=== PATIENT | female | born 1975 | race Caucasian/White ===

== ENCOUNTER 2017-01-18 19:21 | Inpatient (IN) ==
[2017-01-18 19:46] LABS: MANUAL DIFF NEEDED? NO
[2017-01-18 19:50] LABS: BASO% 0.1 % (0.0-0.8); EOS# 0.08 X1000 (0.0-0.7); EOS% 0.6 % (0.0-10.0); HEMOGLOBIN 13.3 g/dL (12.0-16.0); IMM GRAN# 0.04 X1000 (0.0-0.04); IMM GRAN% 0.3 % (0.0-0.5); LYMPH# 1.44 X1000 (1.2-3.4); LYMPH% 10.3 % (20.5-51.1); MCHC 33.3 g/dL (33-37); MCV 90.1 FL (81-99); MONO# 1.25 X1000 (0.11-0.59); MONO% 8.9 % (1.7-9.3); MPV 9.6 FL (7.4-10.4); NEUT% 79.8 % (42.2-75.2); PLT 253 X1000 (130-400); RBC 4.44 XMIL (4.2-5.4)
[2017-01-18] MEDS ORDERED: DILAUDID IV ONE (20:08)
[2017-01-18] MEDS ORDERED: ZOFRAN IV ONE (20:09)
[2017-01-18] MEDS ORDERED: VANCOMYCIN 1 GM/NS 1 GM/250 ML IVPB IV ONE (20:09)
--- NOTE | 2017-01-18 20:26 | PROVIDER DOCUMENTATION ---
HPI-Rash/Wound/ReCheck - General Chief Complaint: Abscess Stated Complaint: ABCESS/INFECTION Time Seen by Provider: 01/18/17 20:04 Allergies/Adverse Reactions: Allergies Allergy/AdvReac Type Severity Reaction Status Date / Time Penicillins Allergy Severe ANAPHYLAXIS Verified 01/16/17 18:17 ketorolac tromethamine * Allergy ITCHING Verified 01/16/17 18:17 [From Toradol] latex Allergy RASH Verified 01/16/17 18:17 tramadol Allergy SWELLING Verified 01/16/17 18:17 Home Medications: Home Medication List Medication Instructions Recorded Confirmed Last Taken Type Ibuprofen [Motrin] 800 mg PO Q8H PRN PRN #20 tablet 05/09/16 01/18/17 01/18/17 17:00 Rx Metformin [Glucophage] 500 mg PO TID 05/09/16 01/18/17 01/18/17 17:00 History - History of Present Illness-Dermatology Nature of Presenting Problem: 41 yof presented with abscess to left inner thigh. Pt has a large area of redness and erythema. Pt was seen at [facility] for abscess and now a new abscess has developed with an increase in cellulitis. Severity: reports: mild Onset/Duration: reports: 2 days ago Timing: reports: still present Review of Systems - Adult - REVIEW OF SYSTEMS - ADULT Constitutional: reports: see HPI Eyes: reports: no symptoms reported Ears, Nose, Mouth & Throat: reports: no symptoms reported Cardiovascular: reports: no symptoms reported Respiratory: reports: no symptoms reported Gastrointestinal: reports: no symptoms reported Genitourinary: reports: no symptoms reported Musculoskeletal: reports: see HPI Integumentary: reports: see HPI, skin sores/ulcer Neurological: reports: no symptoms reported All Other Systems: Reviewed and Negative Past History - Adult - PAST MEDICAL HISTORY-ADULT Review of Records: reports: Old Records Reviewed, Nursing Assessment Review, Medications Reviewed, Social history reviewed & non-contributory. Major Childhood Illnesses: reports: denies history Cardiovascular: reports: HTN, hyperlipidemia Respiratory: reports: denies history Gastrointestinal: reports: denies history Obstetrical/Gynecological: reports: denies history Genitourinary: reports: denies history Musculoskeletal: reports: denies history Neurological: reports: denies history Endocrine/Immune: reports: Diabetes Other Conditions: reports: denies history - PRIOR SURGERIES/PROCEDURES Surgical/Procedure History: reports: none - IMMUNIZATION STATUS Childhood Immunizations: See Nurse Assessment Flu Vaccine: See Nurse Assessment - FAMILY HISTORY Family History: reviewed, not pertinent Physical Exam-General - PHYSICAL EXAM-ADULT Initial Vital Signs Reviewed: Yes - CONSTITUTIONAL General Appearance: appears well, alert, no apparent distress - EYES Eyes: PERRL/EOMI, pink conjunctivae - HEAD, EARS, NOSE, MOUTH & THROAT HENMT: normocephalic/atraumatic, moist mucous membranes, normal ENT inspection, TMs normal, pharynx normal - NECK Neck: non-tender, full range of motion, supple, normal inspection - RESPIRATORY Respiratory: chest non-tender, lungs clear, normal breath sounds, no pleuratic chest pain, no respiratory distress, no accessory muscle use - CARDIOVASCULAR Cardiovascular: normal peripheral pulses, regular rate, rhythm, no edema, no gallop, no JVD, no murmur - GASTROINTESTINAL (ABDOMEN) Abdominal Exam: normal bowel sounds, non tender, soft, no organomegaly, no pulsatile mass - LYMPHATIC Lymphatic: no adenopathy - MUSCULOSKELETAL Back Exam: normal inspection, no CVA tenderness, no vertebral tenderness Extremity: normal range of motion, non-tender, normal gait, normal inspection, no pedal edema, no calf tenderness, normal capillary refill - SKIN Integumentary: normal color, normal turgor, warm/dry - NEUROLOGIC Neurologic: grossly normal - PSYCHIATRIC Psych/Mental Status: oriented x 3 Progress - PLAN OF CARE/RESULTS Progress/Plan/Lab Results: Vital Signs - 8 hr 01/18/17 19:26 Temperature 98.6 F Pulse Rate 79 Respiratory Rate 16 Blood Pressure 151/87 O2 Sat by Pulse Oximetry 100 Laboratory Results - last 24 hr 01/18/17 01/18/17 19:28 19:28 WBC 13.99 H RBC 4.44 Hgb 13.3 Hct 40.0 MCV 90.1 MCH 30.0 MCHC 33.3 RDW Std Deviation 14.3 Plt Count 253 MPV 9.6 Immature Gran % (Auto) 0.3 Neut % (Auto) 79.8 H Lymph % (Auto) 10.3 L [place] % (Auto) 8.9 Eos % (Auto) 0.6 Baso % (Auto) 0.1 Immature Gran # (Auto) 0.04 Neut # (Auto) 11.16 H Lymph # (Auto) 1.44 [place] # (Auto) 1.25 H Eos # (Auto) 0.08 Baso # (Auto) 0.02 Sodium 133 L Potassium 3.8 Chloride 95 L Carbon Dioxide 22 L Anion Gap 16 BUN 7 L Creatinine 0.6 Estimated GFR/1.73 m2 > 60 BUN/Creatinine Ratio 12 Glucose 191 H Calculated Osmolality 269 Calcium 8.6 L Total Bilirubin 0.43 AST 16 ALT 17 Alkaline Phosphatase 107 H Total Protein 7.8 Albumin 3.3 L Globulin 4.5 Albumin/Globulin Ratio 0.7 Orders Category Date Time Status Saline Loc NOW Care 01/18/17 20:05 Active BLOOD CULTURE [BLDCUL] Stat Lab 01/18/17 20:40 Received CBC WITH DIFF [HEME] Stat Lab 01/18/17 19:28 Completed CMP [COMPREHENSIVE METABOLIC PANEL] [CHEM] Stat Lab 01/18/17 19:28 Completed Hydromorphone [Dilaudid] Med 01/18/17 20:08 Discontinued 1 mg IV NOW ONE Ondansetron [Zofran] Med 01/18/17 20:09 Discontinued 4 mg IV NOW ONE Vancomycin 1 gm/Ns Med 01/18/17 20:09 Discontinued 1 gm in 250 ml IV NOW Result Diagrams: 01/18/17 19:28 01/18/17 19:28 - CONSULTS/PCP/HOSPITALIST Notification #1 *Consult/PCP/Hospitalist*: [place] Time Discussed: 21:12 Consult Disposition: Will see in ED Departure - Departure Time of Disposition Decision: 21:13 DIAGNOSIS: Cellulitis and abscess of leg Disposition: ADMITTED INPATIENT 09 Certified Medical Emergency: Emergent Condition: Stable Referrals and Follow-Ups: None,PCP [Primary Care Provider] - Attestation - Physician/ MELVIN Attestation Patient care was provided by Advanced Practice Provider:: Yes Advanced Practice Provider:: Vinny Prieto Advanced Practice Provider documentation review:: The Mid-level provider documentation, treatment plan and medical decision making was reviewed by the physician who agrees with all treatment and medical decision making by the MLP.
[2017-01-18 20:27] LABS: AGAP 16; ALBUMIN 3.3 g/dL (3.5-5.0); ALKALINE PHOSPHATASE 107 U/L (32-104); BUN 7 mg/dL (8-22); CALCIUM 8.6 mg/dL (8.8-10.2); CHLORIDE 95 mmol/L (98-107); COSMO 269; GOT 16 U/L (10-30); GPT 17 U/L (10-36); POTASSIUM 3.8 mmol/L (3.5-5.1); SODIUM 133 mmol/L (136-145); TCO2 22 mmol/L (25-35); TOTAL BILIRUBIN 0.43 mg/dL (0.20-1.00); TOTAL PROTEIN 7.8 g/dL (6.3-8.3)
[2017-01-18] MEDS: CLINDAMYCIN 600 MG/NS 600 MG/50 ML IVPB IV SCH (21:45)
--- NOTE | 2017-01-18 23:28 | HISTORY AND PHYSICAL ---
PRIMARY CARE PROVIDER: [facility] on [facility]. No specific doctor. CHIEF COMPLAINT: Left thigh pain. HISTORY OF PRESENT ILLNESS: This is a 41-year-old female, who appears to be's somewhat medically noncompliant who has a stated history of hypertension, hyperlipidemia, diabetes mellitus type 2 and COPD who does not seem to take any oral medications for hypertension. She went to [facility] reportedly this last Tuesday because she felt as if she had an abscess on the back of her left thigh. During the process of numbing the abscess, the patient told the provider to stop. She received oral antibiotics there, then left against medical advice and did not receive further medication. She comes in today with redness to the right upper thigh, which extends all the way to the posterior portion of the thigh as well. There appear to be multiple small abscesses with erythema surrounding it. There was no fluctuance noted on evaluation. The patient will be admitted for IV antibiotics and further evaluation and treatment. PAST MEDICAL HISTORY: 1. Hypertension. 2. Hyperlipidemia. 3. Diabetes mellitus. 4. Questionable COPD. PREVIOUS SURGICAL HISTORY: Denies. FAMILY HISTORY: Her mother and aunts on her maternal side of the family all have diabetes mellitus type 2. SOCIAL HISTORY: Lives at home with her [place]. Denies alcohol or illicit drug use or abuse. Smokes 1 pack of cigarettes per day. She is disabled related to a learning disability. HOME MEDICATIONS: 1. Metformin 500 mg p.o. t.i.d. 2. Ibuprofen 800 mg p.o. q.8 p.r.n. ALLERGIES: Penicillin. Toradol. Latex. Ultram. REVIEW OF SYSTEMS: Fourteen point review of systems conducted with the patient. She states she had nausea on Tuesday and then again today and right upper thigh pain as well as fever and chills. All other systems were reviewed and found to be negative. PHYSICAL EXAMINATION: VITAL SIGNS: Temperature 98.6 degrees, pulse 79, respirations 16, blood pressure 151/87, oxygen saturation 100% on room air. GENERAL: A 41-year-old female, lying in the ER stretcher in no acute distress. Answers all questions appropriately. Fiance at bedside. HEENT: Head is atraumatic, normocephalic. Pupils equal, round, reactive to light. Extraocular eye movement intact. Sclerae is anicteric. Conjunctivae is pink. Oral mucosa is moist. NECK: Supple. No JVD. No thyromegaly. Trachea is midline. No cervical lymphadenopathy. CARDIAC: Regular rhythm. S1-S2 appreciated. No murmurs, gallops, rubs. LUNGS: Clear to auscultation bilaterally, somewhat decreased. Unsure if this was related to poor body habitus. Symmetrical rise and fall with respirations. ABDOMEN: Protuberant, soft, nondistended, nontender. Bowel sounds present in all 4 quadrants. Normoactive. No pulsatile mass. No organomegaly. EXTREMITIES: No clubbing, cyanosis, or edema. 2+ pedal pulses. SKIN: Warm, dry and intact except for left upper thigh. Multiple small abscesses, which have appeared to drain with erythema extending all the way to the posterior portion of the thigh. Tender to palpation with warmth noted. NEUROLOGICAL: Alert and orient x3. No focal motor deficits noted. Otherwise, nonfocal examination. GENITOURINARY: Patient voids. No bladder distention. Otherwise, deferred. LABORATORY DATA: WBC 13.99, sodium 133, potassium 3.8, chloride 95, carbon dioxide 22, BUN 7, creatinine 0.6, glucose 191. ASSESSMENT AND PLAN: 1. Left upper thigh abscess with cellulitis. These all appear to be draining on her own. No fluctuance was noted on examination. Vancomycin was given in the emergency room. We will continue vancomycin intravenously as well as clindamycin 600 intravenously q.8 hours while blood cultures are pending. We will give [place] 7.5, 1-2 tablets every 6 hours for pain. 2. Nausea. We will treat with Zofran q.4 hours. 3. Hypertension. The patient does not appear to be on oral antihypertensives at home. We will start Norvasc 2.5 mg p.o. now and then 2.5 mg daily and monitor. 4. Diabetes mellitus type 2. We will continue metformin and then check fingerstick blood sugars before meals and at bedtime. Further recommendations per patient clinical course. Dictated by CARMEN Blair for Nessa Puga MD cc: CARMEN Blair MD [facility], [facility]
[2017-01-18] MEDS ORDERED: ZOFRAN IV PRN (23:50)
[2017-01-18] MEDS ORDERED: VANCOMYCIN IV PER PHARMACY MISC SCH (23:50)
[2017-01-18] MEDS ORDERED: NORVASC PO ONE (23:50)
[2017-01-19] MEDS ORDERED: VANCOMYCIN 1 GM/NS 1 GM/250 ML IVPB IV ONE (00:30)
[2017-01-19] MEDS: NS 1,000 ML IV SCH ×2 (00:52→13:25)
[2017-01-19] MEDS: NORCO-7.5 PO PRN ×2 (00:53→07:38)
[2017-01-19] MEDS ORDERED: MORPHINE IV ONE (03:47)
[2017-01-19] MEDS: CLINDAMYCIN 600 MG/NS 600 MG/50 ML IVPB IV SCH (05:21)
[2017-01-19 06:32] LABS: MANUAL DIFF NEEDED? NO
[2017-01-19 06:46] LABS: BASO% 0.1 % (0.0-0.8); EOS# 0.15 X1000 (0.0-0.7); HEMATOCRIT 37.8 % (37.0-47.0); HEMOGLOBIN 12.5 g/dL (12.0-16.0); IMM GRAN# 0.04 X1000 (0.0-0.04); IMM GRAN% 0.3 % (0.0-0.5); LYMPH# 1.22 X1000 (1.2-3.4); LYMPH% 7.9 % (20.5-51.1); MCHC 33.1 g/dL (33-37); MCV 90.6 FL (81-99); MONO% 7.8 % (1.7-9.3); MPV 9.7 FL (7.4-10.4); NEUT% 82.9 % (42.2-75.2); PLT 230 X1000 (130-400); RBC 4.17 XMIL (4.2-5.4)
[2017-01-19 07:31] VITALS: BP 123/61
[2017-01-19 07:33] LABS: AGAP 11; BUN 6 mg/dL (8-22); CALCIUM 8.2 mg/dL (8.8-10.2); CHLORIDE 99 mmol/L (98-107); COSMO 271; POTASSIUM 4.4 mmol/L (3.5-5.1); SODIUM 134 mmol/L (136-145); TCO2 24 mmol/L (25-35)
[2017-01-19] MEDS ORDERED: GLUCOPHAGE PO SCH (08:00)
[2017-01-19] MEDS: GLUCOPHAGE PO SCH ×2 (08:01→11:44)
[2017-01-19] MEDS ORDERED: NORVASC PO SCH (09:00)
[2017-01-19] MEDS: VANCOMYCIN 2,000 MG in NS 500 ML IV SCH ×2 (11:44→13:24)
--- NOTE | 2017-01-20 13:39 | DISCHARGE SUMMARY ---
ADMISSION DATE: 01/18/2017 DISCHARGE DATE: 01/19/2017 PERTINENT PROCEDURES: None. DISCHARGE DIAGNOSES: 1. Left upper thigh abscess with cellulitis. Patient was started on vancomycin , as well as clindamycin, p.o. pain management, as well as antiemetic with Zofran. 2. Hypertension. Patient placed on Norvasc daily. 3. Diabetes mellitus type 2. She was continued on metformin with fingerstick blood sugars. 4. Against medical advice. Patient left against medical advice. HOSPITAL COURSE: Ms. Franco is a 41-year-old female who is medically noncompliant, with a [facility] history of hypertension, hyperlipidemia, diabetes mellitus type 2, and COPD. She did not take any oral medications for hypertension. She went to [facility] this past Tuesday because she felt as if she had an abscess on the back of her left thigh. During the process of numbing the abscess the patient told the provider to stop. She received oral antibiotics and left against medical advice and did not receive any further medication. She came to [facility] with redness of the right upper thigh which extended all the way to the posterior portion of the thigh. There appeared to be multiple small abscesses with erythema surrounding it. Patient was admitted for IV antibiotics and further evaluation. However, the patient has once again let AMA. Dictated by CARMEN Ritchie for Brijesh Weinstein MD cc: Brijesh Weinstein MD MTDD
== END 2017-01-19 13:54 | disposition left against medical advice (07) ==
LOC: ED 19:21 → SUATTDRO 22:55 → 4N 22:55
PROVIDERS: ATTEND Internal Medicine

== ENCOUNTER 2017-01-20 19:26 | Inpatient (IN) ==
[2017-01-20] MEDS ORDERED: D5 NS 500 ML IV ONE (23:24)
[2017-01-20] MEDS ORDERED: VANCOMYCIN 1 GM/NS 1 GM/250 ML IVPB IV ONE (23:26)
[2017-01-20] MEDS ORDERED: DILAUDID IV ONE (23:30)
[2017-01-20] MEDS ORDERED: D5 NS 1,000 ML IV ONE (23:45)
[2017-01-21] MEDS ORDERED: XYLOCAINE 1% INJ ONE (00:51)
[2017-01-21] MEDS ORDERED: FLAGYL 750 MG in NS 150 ML IV ONE (01:29)
[2017-01-21 03:33] LABS: HEMOGLOBIN A1C 7.2 % (4.8-6.0)
[2017-01-21 04:10] LABS: BUN 7 mg/dL (8-22); CHLORIDE 99 mmol/L (98-107); COSMO 271; MANUAL DIFF NEEDED? NO; POTASSIUM 3.5 mmol/L (3.5-5.1); SODIUM 135 mmol/L (136-145); TCO2 24 mmol/L (25-35)
[2017-01-21 04:11] LABS: ALBUMIN 2.8 g/dL (3.5-5.0); ALKALINE PHOSPHATASE 93 U/L (32-104); CALCIUM 8.6 mg/dL (8.8-10.2); TOTAL BILIRUBIN 0.36 mg/dL (0.20-1.00); TOTAL PROTEIN 6.4 g/dL (6.3-8.3)
[2017-01-21 04:12] LABS: AGAP 12; BASO% 0.2 % (0.0-0.8); EOS# 0.11 X1000 (0.0-0.7); EOS% 0.7 % (0.0-10.0); GOT 15 U/L (10-30); GPT 15 U/L (10-36); HEMATOCRIT 34.3 % (37.0-47.0); HEMOGLOBIN 11.4 g/dL (12.0-16.0); IMM GRAN# 0.08 X1000 (0.0-0.04); IMM GRAN% 0.5 % (0.0-0.5); LYMPH# 2.86 X1000 (1.2-3.4); LYMPH% 17.5 % (20.5-51.1); MCH 29.5 PG (27-31); MCHC 33.2 g/dL (33-37); MCV 88.6 FL (81-99); MONO# 1.48 X1000 (0.11-0.59); MONO% 9.1 % (1.7-9.3); MPV 9.8 FL (7.4-10.4); PLT 297 X1000 (130-400); RBC 3.87 XMIL (4.2-5.4)
[2017-01-21 04:13] LABS: INR 1.01; PROTIME 10.6 Seconds (9.2-11.7); PTT 27.4 Seconds (22.0-36.0)
[2017-01-21] MEDS ORDERED: SODIUM CHLORIDE 0.9% INJ SCH (04:24)
[2017-01-21] MEDS ORDERED: OFIRMEV 1000 MG/ISOTONIC SOLN 1,000 MG/100 ML BOTTLE IV PRN (04:24)
[2017-01-21] MEDS ORDERED: VANCOMYCIN IV PER PHARMACY MISC SCH (04:24)
[2017-01-21] MEDS ORDERED: NS 1,000 ML IV ONE (04:24)
[2017-01-21] MEDS ORDERED: ZOFRAN IV PRN (04:24)
[2017-01-21] MEDS: DILAUDID IV PRN ×5 (04:59→23:12)
[2017-01-21] MEDS: CLINDAMYCIN 600 MG/NS 600 MG/50 ML IVPB IV SCH ×3 (04:59→21:42)
[2017-01-21] MEDS: PROTONIX IV SCH (05:06)
[2017-01-21] MEDS ORDERED: VANCOMYCIN 1 GM/NS 1 GM/250 ML IVPB IV ONE (06:00)
[2017-01-21] MEDS: HUMALOG SUBQ SCH ×4 (06:00→21:42)
--- NOTE | 2017-01-21 06:18 | Diag Imaging Result Document ---
PROCEDURE NAME: EXTREM LOWER W/CONTRAST - 01/20/2017 CT OF THE LEFT THIGH WITHOUT CONTRAST: FINDINGS: There is left upper inner skin thickening with subcutaneous air and edema. No well defined fluid collection. No bony abnormality. There is a small popliteal cyst. No other abnormality. IMPRESSION: Left upper inner thigh cellulitis, but no abscess. A preliminary report was given at 12:30 a.m..
--- NOTE | 2017-01-21 07:08 | EKG Report ---
Test Performed on : 01/21/2017 06:20:06 AM Test Reason : Surgical Patient Blood Pressure : / mmHG Vent. Rate : 070 BPM Atrial Rate : 070 BPM P-R Int : 174 ms QRS Dur : 086 ms QT Int : 410 ms P-R-T Axes : 048 036 034 degrees QTc Int : 442 ms Normal sinus rhythm. Normal ECG When compared with ECG of 07-MAR-2010 20:20, Nonspecific T wave abnormality no longer evident in Lateral leads Confirmed by Whit WILKERSON, Senthil Vergara ([id number]) on 01/22/2017 2:20:24 PM
--- NOTE | 2017-01-21 09:03 | Diag Imaging Result Document ---
PROCEDURE NAME: CHEST-2 VIEWS - 01/21/2017 SITTING UPRIGHT AND LATERAL CHEST, THREE VIEWS: FINDINGS: The lungs are well expanded. The heart is borderline mildly prominent. The vessels are not distended. No pneumonia. No pleural effusions. IMPRESSION: Borderline mildly prominent heart, otherwise negative exam.
[2017-01-21] MEDS ORDERED: PEPCID ONE (11:31)
[2017-01-21] MEDS ORDERED: REGLAN ONE (11:31)
--- NOTE | 2017-01-21 11:33 | CONSULTATION ---
DATE OF CONSULTATION: 01/21/2017 REQUESTING PHYSICIAN: Hospitalist service. Consult is concerning left thigh abscess. HISTORY OF PRESENT ILLNESS: A 41-year-old female with a history of hypertension, hyperlipidemia, diabetes mellitus type 2 and COPD initially presenting to [facility] earlier in the week because she felt what she describes as an abscess in the inner part of her left thigh. During the process of injecting local anesthetic into the area patient got upset with her care and left against medical advice. She did receive oral antibiotics there. She came back to the [facility] ER on 01/18/2017 with the same complaint of with the redness in the thigh again. The patient was admitted at that time for IV antibiotics and further treatment. She stayed less than 24 hours, became disgruntled with the hospital for which she states was secondary to the cleaning lady and injecting perfume in the room. Regardless she left against medical advice again. She came back to the emergency department on the evening of 01/20 with similar complaints again with pain and infection to the left thigh. At that time, she did allow the ER to do an incision and drainage of the inner part of her thigh which they drained some purulence but they admitted the patient for IV antibiotics and surgical consult. I did discuss the patient's course with the ER physician when she was being admitted early this morning. I was asked to evaluate for opinion. Patient is still reporting significant pain in her left inner thigh. This pain does limit my ability to examine the area fully. She says it has been hurting worse and is very disgruntled with her treatment at the hospital from previous admissions and is very vocal about this. PAST MEDICAL HISTORY: Includes hypertension, hyperlipidemia, diabetes mellitus, possible COPD. PAST SURGICAL HISTORY: The patient denies besides recent incision and drainage. FAMILY HISTORY: Positive for diabetes. SOCIAL HISTORY: Denies alcohol or illicit drugs. She does smoke currently 1 pack per day. HOME MEDICATIONS: Include metformin, ibuprofen. ALLERGIES: Include penicillin, Toradol, latex, Ultram. REVIEW OF SYSTEMS: A full 10 point review of systems obtained, negative except as specified in HPI. PHYSICAL EXAMINATION: Vital Signs: The patient is currently afebrile. Her vital signs are stable. Most recent vital signs show temperature 98.9, pulse 72, respiratory rate 20, blood pressure 143/58, O2 saturation 98% on room air. General exam: No acute distress. Resting in bed. female, looks stated age. HEENT: Normocephalic, atraumatic. Pupils equal, round, reactive to light. Mucous membranes moist. Oropharynx benign. Neck: Supple. Trachea midline. Cardiovascular: Regular rate and rhythm. Lungs: Grossly clear. Abdomen: Soft, obese and nontender. Extremities: There is an area of erythema noted to the inner part of the upper thigh on the left side. It extends significantly down to the mid aspect of the thigh and almost circumferentially. The area closer to the inner part does have some thickened skin induration. It is a very limited exam given the patient's pain level but at this time, I am unable to feel any fluctuance. Patient does have packing noted in the wound from her incision and drainage in the emergency department. I did not see any active drainage. There is some blistering noted in the skin near the most indurated aspect of this. The remainder of extremities are within normal limits. Neurologic: Grossly intact. Skin: As noted above. Vascular: All extremities perfused. LABORATORY: White blood cell count 16, hematocrit is 34, platelet count 297,000. Glucose 195, A1c 7.2. ASSESSMENT/PLAN: 41-year-old female with left thigh abscess and multiple medical comorbidities. 1. Multiple medical comorbidities at this time, being managed by the hospitalist service. We will defer to them. 2. Left thigh abscess. At this time, the patient is currently on antibiotics and it has been drained by the emergency department. I discussed the options of monitoring her versus further debridement in the operating room. Patient wants to proceed with further debridement. I told her the benefit of this might be the ability to debride it further while she is under anesthesia and not experiencing pain. I did discuss with the patient the possibility of a wound VAC in the area depending on the degree of contamination. Discussed with patient that she will likely need to remain in the hospital even after the incision and drainage. She seemed to understand this. I discussed with her the risks, benefits, alternatives of the procedure. She had no questions. I have posted her to the front of house manager for later today. We will obtain consent. cc: Serafin Collier MD
--- NOTE | 2017-01-21 11:36 | HISTORY AND PHYSICAL ---
PRIMARY CARE PROVIDER: [facility] on [facility]. The patient was not able to name a specific physician that she sees on a regular basis. CHIEF COMPLAINT: Left thigh pain, redness, and swelling. HISTORY OF PRESENT ILLNESS: Ms. Franco is a 41-year-old female, who initially presented to the emergency room at [facility] on January 16 for complaints of left upper thigh pain. In the emergency room [facility] did plan to do an incision and drainage of an abscess on her left upper inner thigh, though the patient did leave against medical advice prior to this being able to be performed. The patient presented to the emergency room at [facility] on January 18 with the same complaints and was ultimately admitted for left upper thigh abscess with cellulitis, though the patient did leave against medical advice on January 19. The patient presented back to the emergency room [facility], January 20, at approximately 19:30, with complaints of continued and worsening of left upper thigh pain, redness, and swelling. The patient also reports associated symptoms of fever. At this time she denies any headache, dizziness, or lightheadedness. She also denies any chest pain, shortness of breath, abdominal pain, nausea, vomiting, or diarrhea. She denies any dysuria or urinary frequency. Other than the pain in her left upper thigh, she denies any other pain in the extremities, or numbness or tingling in the extremities. The patient does report a fever, though denies any body aches or chills. Upon evaluation in the emergency room, the patient was found to have a large area of erythema and swelling noted to her left upper thigh on the inner aspect. This erythema does extend slightly into the groin area as well on the left. There is a centralized abscess, for which Dr. Marquez, the emergency room physician, did perform incision and drainage and did place packing as well. She also was found to have some leukocytosis with a white blood cell count of 16.32. A CT left lower extremity with contrast was performed, which did show findings of left upper inner thigh cellulitis with subcutaneous gas; however, no abscess. Also noted was a left popliteal cyst. At this time we will admit the patient for further treatment and evaluation of her left upper thigh cellulitis and abscess. Dr. Marquez did consult Dr. Collier and make he aware of the patient and does plan to see her in the morning. REVIEW OF SYSTEMS: A 12 point review of systems was conducted with the patient. All were negative, except for pertinent positives mentioned above in the history of present illness. PAST MEDICAL HISTORY: 1. Hypertension. 2. Hyperlipidemia. 3. Diabetes mellitus type 2. 4. Questionable history of chronic obstructive pulmonary disease. 5. Asthma. PAST SURGICAL HISTORY: 1. Left knee surgery. 2. Tubal ligation. FAMILY HISTORY: Her mother and her maternal aunts have a history of diabetes mellitus type 2. SOCIAL HISTORY: Patient currently lives at home with her fiancee. She denies any alcohol or illicit drug abuse. She does smoke 1 pack of cigarettes per day. She reports that she is disabled related to a learning disability. HOME MEDICATIONS: 1. Vitamin B12 1000 mcg p.o. daily. 2. Motrin 800 mg p.o. q.8 hours p.r.n. for pain. 3. Losartan/hydrochlorothiazide 100-25 mg tablet once p.o. daily. 4. Metformin 500 mg p.o. t.i.d. 5. Singulair 10 mg p.o. at bedtime. ALLERGIES: Patient reports allergies to penicillin, Toradol, latex, and Ultram. DIAGNOSTIC DATA/LABORATORY RESULTS: White blood cell count 16.32, hemoglobin 11.4, hematocrit 34.3, platelet count 297,000. PT 10.6, INR 1.01. PTT 27.4. Sodium 135, potassium 3.5, chloride 99, bicarb 24, BUN 7, creatinine 0.4, glucose 159. Hemoglobin A1c 7.2, calcium 8.6. Liver function tests are within normal limits. CT left lower extremity with contrast showed a left upper inner thigh skin thickening and subcutaneous swelling and subcutaneous gas, with no fluid collections or organized abscess. Also noted was left groin reactive adenopathy. There is also noted a popliteal cyst. Findings are consistent with the impression of left upper inner thigh cellulitis with subcutaneous gas, though no abscess. Pending diagnostic studies at this time are blood cultures, wound culture, electrocardiogram, and a chest x-ray in the morning. PHYSICAL EXAMINATION: VITAL SIGNS: Temperature 98.9 degrees, heart rate 72, respirations 20, blood pressure 143/58, oxygen saturations 98% room air. GENERAL: Ms. Franco is a 41-year-old obese female, who is resting on the emergency room stretcher. She is in no acute distress. She was awake, alert, and able answer all questions appropriately. HEENT: Head is atraumatic, normocephalic. Pupils are equal, round, reactive to light. Were 3 mm bilaterally and brisk. Subconjunctivae were pink. Oral mucosa is moist. Oropharynx is clear. NECK: Supple. Trachea midline. CARDIOVASCULAR: Patient has normal S1, S2. No murmurs, gallops, or rubs appreciated, with a regular rate and rhythm. PULMONARY: Patient has symmetrical chest expansion bilaterally. Lung sounds are clear to auscultation in bilateral heels. ABDOMEN: Soft and nontender. It does not appear to be distended, though the patient does have a protuberant abdomen noted. Bowel sounds were present in all 4 quadrants. Normoactive. EXTREMITIES: No cyanosis, clubbing, or edema noted. Pulse, motor, and sensory were intact in all extremities as well. Pedal pulses are 3+ bilaterally. INTEGUMENTARY: Patient does have a large area of erythema and swelling on the inner aspect of her left upper thigh. The area with erythema does extend down to the mid-thigh area , as well as up into the groin area. There is a centralized abscess noted that has previously had incision and drainage performed by Dr. Marquez, the emergency room physician, and there is packing noted. Other than abnormalities, just mentioned no other lesions or sores noted at this time. NEUROLOGICAL: The patient is alert, oriented to person, place, time, and situation. Cranial nerves 2-12 are grossly intact. ASSESSMENT AND PLAN: 1. Left upper thigh abscess with cellulitis. As previously mentioned, an incision and drain was performed in the emergency room and the patient does have wound packing placed at this time. We have placed a consult with Dr. Collier, who was notified by the emergency room physician about the patient. He plans to see her in the morning and possibly take her to the operating room for further wound management. We will await his evaluation and further recommendations. Blood cultures have been placed, as well as wound culture. We will place the patient on vancomycin IV per pharmacy dosing, as well as clindamycin 600 mg IV q.8 hours. Will await cultures and sensitivity. We will treat her pain with Dilaudid 1 mg IV q.3 hours p.r.n. as needed. 2. Leukocytosis. This is likely secondary to her cellulitis and abscess. We will continue with treatment as mentioned per #1 and to continue to follow. 3. Hypertension. Will continue with the patient's blood pressure medicine of losartan/hydrochlorothiazide 100 mg/25 mg tablet once daily. Continue to follow. 4. Diabetes mellitus type 2. At this time, given that the patient did receive contrast with her CT study, we will hold her metformin at this time and place her on the insulin lispro low-dose sliding scale and we will do pattern fingerstick blood sugars and continue to follow. The patient was placed on the medical floor with telemetry. She will have vital signs q.6 hours. We would do strict intake and output q 8 hours. Deep venous thrombosis prophylaxis at this time. Will be provided with SCDs given the patient will likely be going to surgery this morning. We will hold any anticoagulants. GI prophylaxis provided with Protonix 40 mg IV q.24 hours. We will do fluid hydration with normal saline at 100 mL/h, at this time given the patient is NPO. Further orders and recommendations pending hospital course, diagnostic studies, and physician evaluation. Dictated by CARMEN Harris for Tan Salazar MD I personally examined and discussed plan with PLASTER LATHER cc: Tan Salazar MD MTDD
[2017-01-21] MEDS ORDERED: OFIRMEV 1000 MG/ISOTONIC SOLN 1,000 MG/100 ML BOTTLE ONE (12:36)
[2017-01-21] MEDS ORDERED: ZOFRAN ONE (13:00)
[2017-01-21] MEDS ORDERED: XYLOCAINE-MPF 2% ONE (13:01)
[2017-01-21] MEDS ORDERED: LR 1,000 ML ONE (13:01)
[2017-01-21] MEDS ORDERED: MOTRIN PO PRN (13:18)
--- NOTE | 2017-01-21 14:46 | PROGRESS NOTE ---
DATE: 01/21/2017 SUBJECTIVE: Ms. Cabrera just left the hospital about 3 days ago after signing AMA. She had to come back because of worsening swelling to the left thigh and redness. Today she just came from surgery. She refers to be doing fine. OBJECTIVE: Vitals: Are stable. Blood pressure is 111/59, pulse of 70, respirations 15. General: Ms. Franco is a 41-year-old female morbidly obese with BMI of 40.2. She was in bed. Not seemingly distressed. HEENT: Mucosa is pink and moist. Anicteric. Acyanotic. Neck: Supple. Chest: Was clear. Cardiovascular: Regular rate and rhythm. Abdomen: Soft. Mildly distended. Extremities: No pedal edema. There is a wound VAC in the medial aspect of the left upper thigh. There have been some demarcation on the cellulitis. This seems to be improving. LABORATORY DATA: WBC is 16.32, hemoglobin is 11.4, platelet count is 297,000. Chemistry is reviewed. Sodium is 135, potassium is 3.5, chloride 99, bicarb is 24, glucose is 159. A1c is 7.5. ASSESSMENT: 1. Left upper medial thigh abscess with surrounding cellulitis. Patient is status post incision and drainage by Dr. Collier today. A wound vacuum-assisted closure has been placed. Will continue further recommendations from Dr. Collier. So far the wound culture has been growing gram-positive cocci. I think this is probably methicillin-resistant Staphylococcus aureus. She is currently on clindamycin and vancomycin. Will continue her on both antibiotics for now. 2. Hypertension stable. 3. Diabetes mellitus with A1c of 7.2, will continue insulin therapy while she is here in hospital. 4. Morbid obesity. Patient has been counseled. cc: Brijesh Weinstein MD
--- NOTE | 2017-01-21 15:57 | OPERATIVE NOTE ---
PROCEDURE DATE: 01/21/2017 PREOPERATIVE DIAGNOSIS: Left thigh abscess. POSTOPERATIVE DIAGNOSIS: Left thigh necrotizing soft tissue infection. PROCEDURES PERFORMED: 1. Incision and debridement of left thigh necrotizing soft tissue infection. 2. Placement of a negative pressure wound dressing. SURGEON: Serafin Collier MD OBSTETRICS GYNECOLOGY MD: None. ANESTHESIA: General endotracheal. INTRAOPERATIVE FINDINGS: There is a tract of dissection that measured about 15 cm on the inner aspect of her thigh running posteriorly. The dimensions of the wound were roughly 15 cm x 5 cm x 4 cm deep. COMPLICATIONS: None at the time of dictation. ESTIMATED BLOOD LOSS: 20 mL. SPECIMENS REMOVED: None. BRIEF HISTORY: The patient is a 41-year-old female presenting with worsening wound infection to her left thigh. She had been admitted early this morning and had a previous drainage done early this morning in the emergency department. I discussed with her the risks and benefits of further debridement given a limited exam. She wanted to proceed. All questions were answered. The patient was on antibiotics. DESCRIPTION OF PROCEDURE: After an informed consent was obtained, the patient was brought to the operative theatre and transferred to the operating room table and placed in the supine position. General endotracheal anesthesia was then performed without complication. A formal time out was then performed confirming the patient, date, and procedure. All were in agreement. At that time, attention was given to the left thigh. It was prepped and draped in a sterile fashion. After the formal time out, we extended the previous incision and drainage incision approximately 4 cm more and debrided some necrotic skin. We debrided skin, subcutaneous tissue, and fat. This measured less than 20 sq cm of debridement. We were able to probe in all directions and found multiple tracking areas, which we opened up. We were able to drain a significant amount of purulence. We then brought in a pulse lavage and irrigated out the wound for approximately 3 liters of saline. At the completion of that point, there were no other tracking regions. The area seemed relatively clean. We did debride some necrotic fat from the area. Given the size of the wound, it was felt that the patient benefit from a wound VAC, and it was placed with a black sponge in the standard fashion. We created a good seal. It held suction. The patient tolerated the procedure well and was transferred to the recovery room in stable condition. Postoperatively, we will keep the wound VAC on until at least Andre and plan on changing it at that time. cc: Serafin Collier MD
[2017-01-21] MEDS: HYZAAR 50/12.5 MG PO SCH (16:14)
[2017-01-21] MEDS: GLUCOPHAGE PO SCH ×2 (16:15→17:15)
[2017-01-21] MEDS: VANCOMYCIN 2,000 MG in NS 500 ML IV SCH (18:15)
[2017-01-21] MEDS: PERIDEX MT SCH ×2 (18:16→21:42)
[2017-01-21] MEDS: SINGULAIR PO SCH (21:44)
[2017-01-22] MEDS: DILAUDID IV PRN ×7 (02:23→22:27)
[2017-01-22] MEDS: PROTONIX IV SCH (05:21)
[2017-01-22] MEDS: CLINDAMYCIN 600 MG/NS 600 MG/50 ML IVPB IV SCH ×3 (05:21→21:39)
[2017-01-22 07:08] LABS: AGAP 11; ALBUMIN 2.9 g/dL (3.5-5.0); ALKALINE PHOSPHATASE 92 U/L (32-104); BUN 5 mg/dL (8-22); CALCIUM 8.6 mg/dL (8.8-10.2); CHLORIDE 98 mmol/L (98-107); COSMO 274; GOT 10 U/L (10-30); GPT 15 U/L (10-36); POTASSIUM 3.3 mmol/L (3.5-5.1); SODIUM 137 mmol/L (136-145); TCO2 28 mmol/L (25-35); TOTAL BILIRUBIN 0.47 mg/dL (0.20-1.00); TOTAL PROTEIN 6.9 g/dL (6.3-8.3)
[2017-01-22 07:13] LABS: BASO% 0.5 % (0.0-0.8); EOS# 0.24 X1000 (0.0-0.7); EOS% 1.8 % (0.0-10.0); HEMATOCRIT 36.2 % (37.0-47.0); HEMOGLOBIN 11.7 g/dL (12.0-16.0); IMM GRAN# 0.06 X1000 (0.0-0.04); IMM GRAN% 0.5 % (0.0-0.5); LYMPH# 2.77 X1000 (1.2-3.4); LYMPH% 21.2 % (20.5-51.1); MANUAL DIFF NEEDED? YES; MCH 29.5 PG (27-31); MCHC 32.3 g/dL (33-37); MCV 91.4 FL (81-99); MONO# 1.08 X1000 (0.11-0.59); MONO% 8.3 % (1.7-9.3); MPV 9.4 FL (7.4-10.4); NEUT% 67.7 % (42.2-75.2); PLT 317 X1000 (130-400); RBC 3.96 XMIL (4.2-5.4)
[2017-01-22] MEDS: VANCOMYCIN 2,000 MG in NS 500 ML IV SCH ×2 (07:17→17:59)
[2017-01-22] MEDS: HUMALOG SUBQ SCH ×4 (07:36→21:40)
[2017-01-22 07:50] LABS: BANDS 4 % (0-1); EOS 4 % (1-10); LYMPHS 22 % (21-51); MONO 4 % (1-9)
[2017-01-22] MEDS: GLUCOPHAGE PO SCH ×3 (08:50→17:59)
[2017-01-22] MEDS: VITAMIN B-12 PO SCH (08:50)
[2017-01-22] MEDS: PERIDEX MT SCH ×2 (08:51→21:40)
[2017-01-22] MEDS: HYZAAR 50/12.5 MG PO SCH (08:51)
[2017-01-22] MEDS ORDERED: KLOR-CON PO ONE (09:32)
[2017-01-22] MEDS: NORCO-10 PO PRN ×3 (13:14→21:39)
--- NOTE | 2017-01-22 16:17 | PROGRESS NOTE ---
DATE: 01/22/2017 SUBJECTIVE: Today Ms. Franco referred to be doing okay. She wants to go home mainly because she wants to go out and smoke. OBJECTIVE: Vital Signs: Stable. Blood pressure is 149/61, pulse of 60, respirations 18, temperature 98.3 degrees. General exam: Ms. Franco is a 41-year-old, morbidly obese, female. She is in bed. She did not seem to be in any distress. HEENT: Mucosa is pink and moist. Anicteric. Acyanotic. Neck: Supple. Chest: Clear. Cardiovascular: Regular rate and rhythm. Abdomen: Distended, but nontender. Extremities: No pedal edema. There is swelling to the medial aspect of the left upper thigh. There is a wound VAC in place. However, around the wound VAC, you can see erythematous changes with the posterior part having some macerations tissue. CULTURES: Wound culture so far has been no growth. Blood cultures also have been no growth. ASSESSMENT: 1. Left upper medial thigh abscess with surrounding cellulitis, status post incision and drainage. Wound VAC is in place and surgery is following. We are going to continue with the current antibiotic coverage. We will consult infectious disease Tuesday to recommend adequate antibiotic therapy and also make arrangement for followup on the patient on outpatient basis. 2. Diabetes mellitus. A1c is 7.2. Glucose is still a little bit high. We are going to add insulin glargine 10 units to go with the metformin and also the sliding scale. 3. Morbid obesity. 4. Tobacco abuse. Patient has been counseled. She is currently craving. I offered to put a patch on her, but she is not for that. She wants to go out to smoke. I did explain to her that it is not permitted to smoke on the campus, and I think the best thing would be to easily come off the smoking since it also has its own long-term complications, but the patient would not have any of what I was telling her. 5. Hypertension, stable. Of note, the patient is on ibuprofen, metformin and vancomycin. We are going to keep a very close eye on her kidney functions since combination of all these medications can affect that. cc: Brijesh Weinstein MD MTDD
[2017-01-22] MEDS: SINGULAIR PO SCH (21:39)
[2017-01-22] MEDS: LANTUS SUBQ SCH (21:41)
[2017-01-23] MEDS: DILAUDID IV PRN ×6 (01:45→22:59)
[2017-01-23] MEDS: NORCO-10 PO PRN ×5 (02:56→22:17)
[2017-01-23] MEDS: PROTONIX IV SCH (05:37)
[2017-01-23] MEDS: CLINDAMYCIN 600 MG/NS 600 MG/50 ML IVPB IV SCH ×3 (05:38→22:17)
[2017-01-23] MEDS: VANCOMYCIN 2,000 MG in NS 500 ML IV SCH (06:24)
[2017-01-23 07:13] LABS: AGAP 12; BUN 7 mg/dL (8-22); CALCIUM 8.9 mg/dL (8.8-10.2); CHLORIDE 97 mmol/L (98-107); COSMO 273; POTASSIUM 3.5 mmol/L (3.5-5.1); SODIUM 137 mmol/L (136-145); TCO2 28 mmol/L (25-35)
[2017-01-23 07:22] LABS: BASO% 0.9 % (0.0-0.8); EOS# 0.24 X1000 (0.0-0.7); EOS% 2.3 % (0.0-10.0); HEMATOCRIT 36.3 % (37.0-47.0); HEMOGLOBIN 11.8 g/dL (12.0-16.0); IMM GRAN# 0.03 X1000 (0.0-0.04); IMM GRAN% 0.3 % (0.0-0.5); LYMPH# 2.93 X1000 (1.2-3.4); LYMPH% 28.1 % (20.5-51.1); MANUAL DIFF NEEDED? YES; MCH 29.6 PG (27-31); MCHC 32.5 g/dL (33-37); MCV 91.2 FL (81-99); MONO# 0.88 X1000 (0.11-0.59); MONO% 8.4 % (1.7-9.3); MPV 9.4 FL (7.4-10.4); PLT 387 X1000 (130-400); RBC 3.98 XMIL (4.2-5.4)
[2017-01-23] MEDS: HUMALOG SUBQ SCH ×4 (07:30→22:18)
[2017-01-23] MEDS: VITAMIN B-12 PO SCH (08:06)
[2017-01-23] MEDS: PERIDEX MT SCH ×2 (08:06→22:18)
[2017-01-23] MEDS: HYZAAR 50/12.5 MG PO SCH (08:06)
[2017-01-23] MEDS: GLUCOPHAGE PO SCH ×3 (08:06→16:33)
--- NOTE | 2017-01-23 10:50 | PROGRESS NOTE ---
DATE: 01/23/2017 SUBJECTIVE: Today Ms. Franco refers to be doing fine. She denies any acute problems. OBJECTIVE: Vital signs: Blood pressure is 148/63, pulse of 66, respiration is 18, temperature is 98.1 degrees. General: Ms. Franco is a 41-year-old female, morbidly obese. She is in bed, no distress. HEENT: Mucosa is pink and moist. Anicteric. Acyanotic. Neck: Supple. Chest: Clear. Cardiovascular: Regular rate and rhythm. Abdomen: Soft, distended, but nontender. Extremities: No pedal edema. There is still swelling to the medial aspect of the left upper medial thigh. It is warm. It is erythematous and there is a wound VAC in place. PROCESS SUPERVISOR: Patient is alert and oriented x4. LABORATORY DATA: WBC is down to 10.44, hemoglobin is 11.8, platelet count is 387,000. Chemistry is reviewed and completely normal. Glucose is 124. The wound culture so far has grown coagulase-negative Staphylococcus. ASSESSMENT: 1. Left thigh necrotizing soft tissue infection status post incision and drainage with wound VAC placement. Patient is being followed by the surgery team. So far, the wound has grown Staph coagulase-negative so I will discontinue the vancomycin and continue with the clindamycin. Patient is still pending to be evaluated by ID. 2. Diabetes mellitus. Presenting A1c is 7.2. Glucose has been relatively stable. We did add glargine iron 2 large filling yesterday to achieve better glucose control to improve on wound healing and this seems to be stable. 3. Hypertension, controlled. 4. Morbid obesity. Patient has been counseled. 5. Tobacco abuse. Patient has been counseled. PLAN: So in general, I think Ms. Franco is doing fine. We will continue with the IV clindamycin for now. She is pending to be evaluated by ID. She does have very bad peripheral lines so we will get the PICC line team to get her a PICC line and hopefully we can discharge her within 24-48 hours. cc: Brijesh Weinstein MD
[2017-01-23] MEDS ORDERED: NS 250 ML ONE (11:36)
[2017-01-23] MEDS ORDERED: INSULIN PEN NEEDLES ONE (16:50)
[2017-01-23] MEDS: SINGULAIR PO SCH (22:18)
[2017-01-23] MEDS: LANTUS SUBQ SCH (22:18)
--- NOTE | 2017-01-23 22:48 | CONSULTATION ---
DATE OF CONSULTATION: 01/23/2017 CONCLUSION: A 41-year-old female diabetic is very obese, is status post incision and debridement of a left thigh abscess performed by Dr. Collier. He encountered at surgery necrotizing soft tissue infection. Culture taken from the wound is growing a coagulase-negative Staph. The patient has an allergy to penicillin manifested by anaphylaxis. She does not remember ever taking Keflex. RECOMMENDATIONS: I think between the patient's surgery and giving the patient IV clindamycin that her left leg infection has improved dramatically. For now, I agree with keeping the patient on IV clindamycin in the hospital. She does not seem to be the most reliable patient in view of the fact that she signed out AMA recently. Also she and the man to whom she is engaged do not have a place to stay and they have been staying in his car. Therefore when the patient is discharged I think it would be best to give her p.o. antibiotic and the 1 would choose would be clindamycin because it seems to have helped the patient quite a bit in the hospital and also she is not allergic to it. Also it will be impossible to use the VAC for her wound after discharge. DISCUSSION: The patient developed a large abscess of the left leg associated with a large area of erythema. She has had surgery performed by Dr. Collier as mentioned above. The culture from the wound also is as mentioned above. The patient had blood cultures which were negative. Her CBC shows a white count of 10,440, hemoglobin 11.8, and platelet count 387,000. Creatinine is 0.5. GFR is greater than 60. Liver function studies are normal. PAST MEDICAL HISTORY/REVIEW OF SYSTEMS: Eyes and ears: She denies difficulty hearing or seeing. Respiratory: No cough or shortness of breath. Cardiac: No chest pain or palpitations. GI: No seizures or motor or sensory deficit. Endocrine: Patient is diabetic but she does not have thyroid disease. Hematologic: No history of anemia or bleeding tendency. The remainder of the patient's review of systems was completed and was negative. SAGGER SOAK HISTORY: She is a 3, para 3, AB 0. She has had a tubal ligation. PREVIOUS HOSPITALIZATIONS AND OPERATIONS: She has had labor and deliveries, tubal ligation, and surgery on her left knee. MEDICAL DISEASES: Positive for diabetes mellitus, hypertension, hyperlipidemia , cigarette smoking which has caused COPD and asthma and also she appears to be noncompliant with her treatments. INFECTIOUS DISEASE HISTORY: She Positive for UTI. FAMILY HISTORY: Positive for diabetes mellitus and hypertension. SOCIAL HISTORY: [place] She smokes cigarettes. She does not drink alcoholic beverages or abuse drugs. She is engaged to be . She has cats for pets. ALLERGIES: She has allergies to the following medications. She is allergic to tramadol, latex and Toradol. Her allergy to penicillins is listed as severe and the specific reaction spelled out is anaphylaxis. Patient is on disability. PHYSICAL EXAMINATION: Vital Signs: Temperature is 98.1 degrees, pulse 66, respirations 18, blood pressure 148/63. Generally: This is an obese young female who is in no acute distress at this time. Head eyes, ears, nose, and throat: She can hear my spoken words and see near objects. No drainage noted from the nose or ears. Neck: No meningismus. Thorax: Slight increased AP diameter of the chest. Lungs: Clear to auscultation. Cardiovascular: Heart rate is regular. Abdomen: Soft and nontender. Extremities: The posterior part of the left thigh was where the abscess was. It is much less swollen and erythematous than previously. The VAC is in place over the abscess area of drainage. Neurologic: Patient is alert. She can move her extremities. There is no tremor. Her sensation is intact to touch. Her memory as regarding her medical history was intact. Integument: I did not notice any rashes. Thank you for the consult. cc: Marco Diamond MD MTDD
[2017-01-24] MEDS: CLINDAMYCIN 600 MG/NS 600 MG/50 ML IVPB IV SCH ×2 (05:29→12:45)
[2017-01-24] MEDS: DILAUDID IV PRN ×2 (06:10→11:55)
--- NOTE | 2017-01-24 06:16 | PROGRESS NOTE ---
DATE: 01/24/2017 SUBJECTIVE: The patient doing okay. Reports that her pain is better. No major issues. OBJECTIVE: Vital Signs: Patient is currently afebrile. Her vital signs are stable. General Examination: No acute distress. Cardiovascular: Regular rate and rhythm. Lungs: Grossly clear. Abdomen: Soft, nontender, nondistended. Extremities: Wound VAC in place to the left inner thigh. The erythema is significantly decreased from previous markings. Wound VAC does appear to have a good seal. Vascular: All extremities perfuse. LABORATORY: None currently. ASSESSMENT/PLAN: A 41-year-old female, status post incision and debridement of necrotizing soft tissue infection to the left inner thigh, with application of wound VAC. 1. Multiple medical comorbidities. At this time be managed by the hospitalist service. 2. Left thigh abscess and necrotizing soft tissue infection. At this time, we will ask wound care see the patient for wound VAC change and wound evaluation. Will make further recommendations after wound care see's the patient. Otherwise, continue antibiotics for now. cc: Serafin Collier MD
[2017-01-24] MEDS: HUMALOG SUBQ SCH ×2 (06:44→12:00)
[2017-01-24] MEDS: PROTONIX IV SCH (06:57)
[2017-01-24] MEDS: NORCO-10 PO PRN ×2 (07:46→11:40)
[2017-01-24 07:47] VITALS: BP 123/55
[2017-01-24] MEDS: PERIDEX MT SCH (08:14)
[2017-01-24] MEDS: GLUCOPHAGE PO SCH ×2 (08:15→12:45)
[2017-01-24] MEDS: VITAMIN B-12 PO SCH (08:16)
[2017-01-24] MEDS: HYZAAR 50/12.5 MG PO SCH (08:16)
--- NOTE | 2017-01-24 08:51 | PROGRESS NOTE ---
DATE: 01/24/2017 PRESENT ILLNESS: The patient is status post incision and debridement of a left thigh abscess from which a coagulase-negative staph was isolated. Today he she let me know that she is having diarrhea. MEDICATIONS: As mentioned above, the patient is on IV clindamycin in a dose of 600 mg IV every 8 hours. PHYSICAL EXAMINATION: Vital Signs: Temperature is 98.4 degrees, pulse 57, respirations 18, blood pressure 123/55. General: This is an obese young female who is in no acute distress. Lungs: Clear to auscultation. Cardiovascular: Regular heart rate. Abdomen: Soft and nontender. Extremities: The left thigh abscess area was less indurated and smaller in size. The VAC is in place. The erythema has disappeared. LAB AND X-RAY: There is no new x-ray. The lab for today [place] [address], hemoglobin 11.8, and platelet count 387,000 creatinine 0.5. GFR is greater than 60. ASSESSMENT AND PLAN: Patient is status post I D of a left hip abscess. The VAC is in place. She and her boyfriend are living out of his car. Therefore IV antibiotics and the VAC cannot be done. I want to wait for the results of the Clostridium difficile toxin. If she has that, I will need to stop the clindamycin and start her on p.o. vancomycin and make sure that it is clearing up before we let her go home. Also I will need to start her on another antibiotic for her leg abscess. COMORBIDITIES: Diabetes mellitus, cigarette smoking, and obesity. cc: Marco Diamond MD
--- NOTE | 2017-01-24 14:36 | PROGRESS NOTE ---
DATE: 01/24/2017 ADDENDUM: The patient told me she did have diarrhea; however, she said she has been having the same kind of diarrhea for many years. She has refused to give a stool for Clostridium difficile. I did write her out a prescription for clindamycin and I told her if her diarrhea should change in character from what it has been for years, then she needed to call me immediately. I have generated from the computer a prescription for clindamycin 300 mg p.o. every 8 hours #20, and I have requested that the patient see me back in the office 2 weeks after discharge. I should also mention the patient refused to give a stool for Clostridium difficile testing. cc: Marco Diamond MD
[2017-01-24] MEDS ORDERED: CULTURELLE PO SCH (21:00)
--- NOTE | 2017-01-25 06:47 | DISCHARGE SUMMARY ---
ADMISSION DATE: 01/21/2017 DISCHARGE DATE: 01/24/2017 CONSULTATION: Dr. Serafin Collier with general surgery. PERTINENT PROCEDURES: 1. Lower extremity CT showed left upper inner thigh cellulitis but no abscess. 2. I D of left thigh necrotizing soft tissue infection performed by Dr. Serafin Collier with placement of a wound VAC. DISCHARGE DIAGNOSES: 1. Left thigh necrotizing soft tissue infection status post I D with wound VAC. Due to the patient's social situation with only living in a car, she will go home with p.o. antibiotics and follow up with Dr. Diamond in 2 weeks, and she will follow up in the wound Care Clinic as well as follow up with Dr. Serafin Collier. 2. Diabetes mellitus type 2. The A1c was 7.2, glucoses had been relatively stable. She was added on Lantus; however, after speaking with the patient we told her to achieve better glucose as well as wound healing, that she will need to continue on her p.o. as well as subcutaneous insulin; however, the patient stated that she will only take p.o. She will not consider subcutaneous insulin and she understands that this may delay her wound healing. 3. Hypertension controlled. 4. Morbid obesity. Patient has been counseled against diet and exercise. 5. Tobacco abuse- the patient has been counseled daily about smoking cessation as well as the means to quit. 6. Medical noncompliance with oral medications for hypertension, as well as med noncompliance with her left upper thigh abscess. She was last admitted on 01/18/2017 and signed out AMA on 01/19/2017, which patient came back on 01/21/2017 for readmission of her left thigh abscess that she did not fully receive treatment for. HOSPITAL COURSE: Ms. Anna is a 41-year-old female who has a history of medical noncompliance, hypertension, diabetes mellitus type 2 and left upper thigh abscess. She initially reported to [facility] on January 16 for complaint of left upper thigh pain. At [facility] in the ED they did plan to do an I and D of an abscess. However the patient did leave AMA prior to the I D being performed, and the patient presented to [facility] on January 18 with the same complaint and she was admitted for her left upper thigh abscess. She was started on antibiotics and she again signed out on January 19 AMA. The patient presented back to the emergency room on the night of January 20 with complaints of continued and worsening left upper thigh pain, redness and swelling. Reported associated symptoms of fever. The patient was found to have a large area of erythema and swelling noted to her left upper thigh on the inner aspect. The redness did extend into the groin area on the left. There was a centralized abscess. Dr. Marquez, the ED physician, did perform an I and D and placed packing as well. She was found have some leukocytosis with a white count of 16. CT of the left lower extremity with contrast was performed. It did show a left upper inner thigh cellulitis with subcutaneous gas; however, no abscess. The patient was admitted for a surgical consult. She was started on IV antibiotics. She underwent I D by Dr. Collier with placement of a wound VAC. Dr. 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 Technical Operations Manager was also involved secondary to the patient's social situation. Due to her not having a home and living in a car she did not want to go home on IV antibiotics so we made arrangements for p.o. antibiotics, to follow up with Dr. Marco Diamond in 2 weeks, as well as follow up with Dr. Collier. It has also been setup for her to receive outpatient wound care at [facility]. We did discuss with the patient the need for short-term reasons for wound healing to start on subcutaneous insulin. However, the patient refuses. She states that she will only take her p.o. medicine for her diabetes. Patient did have some complaints of diarrhea today; however, she states she normally does have diarrhea and it is not anything other than her norm. She refused any stool studies. Patient was educated that if her stools did change in nature that she would need to come back to the ED. Patient is being discharged today. VITAL SIGNS: Temperature is 98.4 degrees, heart rate 57, respirations 18, blood pressure 123/55, O2 is 97% on room air. DISCHARGE MEDICATIONS: 1. Clindamycin 300 mg p.o. q.8 hours. 2. Vitamin B12 1000 mcg p.o. daily. 3. Motrin 800 mg p.o. q.8 hours. 4. Culturelle 1 each p.o. b.i.d. 5. Losartan/hydrochlorothiazide 1 each p.o. daily. 6. Metformin 500 mg p.o. t.i.d. 7. Singulair 10 mg p.o. at bedtime. FOLLOW-UP: Patient is being discharged today. She will need to continue her full course of antibiotics as well as following up in the wound center, keeping her appointment with Dr. Collier as well as Dr. Diamond, as well as diet and exercise education and smoking cessation. Patient can return to the ED for any worsening of symptoms. TIME SPENT: Discharge time 30 minutes. Dictated by CARMEN Ritchie for Brijesh Weinstein MD cc: Brijesh Weinstein MD
--- NOTE | 2017-01-26 09:38 | PROVIDER DOCUMENTATION ---
This chart was entered by Louis Garcia Scribe, acting as scribe for Atul Marquez MD. HPI-Rash/Wound/ReCheck - General Chief Complaint: Rash Stated Complaint: RECHECK Time Seen by Provider: 01/20/17 22:45 Source: patient Allergies/Adverse Reactions: Allergies Allergy/AdvReac Type Severity Reaction Status Date / Time Penicillins Allergy Severe ANAPHYLAXIS Verified 01/20/17 22:50 ketorolac tromethamine * Allergy ITCHING Verified 01/20/17 22:50 [From Toradol] latex Allergy RASH Verified 01/20/17 22:50 tramadol Allergy SWELLING Verified 01/20/17 22:50 Home Medications: Home Medication List Medication Instructions Recorded Confirmed Last Taken Type Ibuprofen [Motrin] 800 mg PO Q8H PRN PRN #20 tablet 05/09/16 01/20/17 01/18/17 17:00 Rx Metformin [Glucophage] 500 mg PO TID 05/09/16 01/20/17 01/20/17 18:00 History Montelukast Sodium [Singulair] 10 mg PO QHS 01/20/17 01/20/17 01/19/17 19:00 History Losartan/Hydrochlorothiazide 1 each PO DAILY 01/21/17 01/21/17 01/20/17 07:00 History [Losartan-Hctz 100-25 mg Tab] Clindamycin [Cleocin] 300 mg PO Q8H #20 capsule 01/24/17 Unknown Rx Cyanocobalamin (Vitamin B-12) 1,000 mcg PO DAILY #60 01/24/17 01/20/17 07:00 Rx [Vitamin B12] Lactobacillus Rhamnosus GG 1 each PO BID #30 capsule 01/24/17 Unknown Rx [Culturelle] - History of Present Illness-Dermatology Nature of Presenting Problem: Pt is a 41 yof who presents to ER with CC of a rash developing in her L inguinal region. Pt reports that she was seen at [facility] on Tuesday for an abscess on the back of her L thigh, but left AMA due to disagreements with the staff. Pt reports that she was admitted on Tuesday to [facility] for same sxs, but left AMA because her "boyfriend don't have no where to sleep." Pt presents tonight with worsening sxs. Location: reports: lower extremity (L inguinal) Quality: reports: burning, itchy Severity: reports: severe Onset/Duration: reports: 5 days ago Timing: reports: still present, getting worse Context/Associated Symptoms: reports: abscess, change in skin texture, tender area. denies: insect bite/sting, tick bite, spider bite, unknown bite/sting, laceration, abrasion, bruising/hematoma, incised wound, stab wound, burn Identifiable cause?: No Locality of Occurance: Home Similar Symptoms Previously?: Yes Recently seen or treated by another doctor?: Yes Review of Systems - Adult - REVIEW OF SYSTEMS - ADULT Constitutional: denies: chills, fever, fatique, night sweats, weight gain, weight loss Eyes: reports: no symptoms reported Ears, Nose, Mouth & Throat: reports: no symptoms reported Cardiovascular: reports: no symptoms reported Respiratory: reports: no symptoms reported Gastrointestinal: denies: abdominal pain, hematemesis, constipation, diarrhea, difficulty swallowing, frequent heartburn, nausea, poor appetite, rectal bleeding, vomiting Genitourinary: reports: no symptoms reported Musculoskeletal: denies: bone pain, back pain, frequent leg cramps, joint pain, joint swelling, muscle aches, muscle weakness, neck pain Integumentary: reports: rash, skin sores/ulcer, skin thickening. denies: hives , hair loss, itching, mole changes, nail changes Neurological: reports: no symptoms reported Psychiatric: reports: no symptoms reported Endocrine: reports: no symptoms reported Hematologic/Lymphatic: reports: no symptoms reported Allergic/Immunologic: reports: no symptoms reported All Other Systems: Reviewed and Negative Past History - Adult - PAST MEDICAL HISTORY-ADULT Review of Records: reports: Nursing Assessment Review, Medications Reviewed Cardiovascular: reports: HTN, hyperlipidemia Endocrine/Immune: reports: Diabetes - IMMUNIZATION STATUS Childhood Immunizations: See Nurse Assessment Flu Vaccine: See Nurse Assessment - FAMILY HISTORY Family History: reviewed, not pertinent Physical Exam-General - PHYSICAL EXAM-ADULT Initial Vital Signs Reviewed: Yes - CONSTITUTIONAL General Appearance: appears well, alert, mild distress, obese, anxious. negative: no apparent distress - EYES Eyes: PERRL/EOMI, pink conjunctivae, fundi clear, no AV nicking - HEAD, EARS, NOSE, MOUTH & THROAT HENMT: normocephalic/atraumatic, moist mucous membranes, normal ENT inspection, TMs normal, pharynx normal. negative: pharyngeal erythema, tonsillar exudate, TM abnormal - NECK Neck: non-tender, full range of motion, supple, normal inspection. negative: C- spine tenderness, limited range of motion, lymphadenopathy - RESPIRATORY Respiratory: chest non-tender, lungs clear, normal breath sounds, no pleuratic chest pain, no respiratory distress, no accessory muscle use. negative: respiratory distress, decreased breath sounds, accessory muscle use, wheezing - CARDIOVASCULAR Cardiovascular: normal peripheral pulses, regular rate, rhythm. negative: bradycardia, tachycardia, irregularly irregular - GASTROINTESTINAL (ABDOMEN) Abdominal Exam: normal bowel sounds, non tender, soft, no organomegaly, no pulsatile mass. negative: abnormal bowel sounds, distended, tenderness - MUSCULOSKELETAL Extremity: normal range of motion, non-tender, normal gait, normal inspection, no pedal edema, no calf tenderness, normal capillary refill, erythema (L inguinal), inflammation (L inguinal), swelling (L inguinal), tenderness (L inguinal). negative: deformity - SKIN Integumentary: erythema (L inguinal), swelling (L inguinal), tenderness (L inguinal), warm (L inguinal). negative: normal color, normal turgor, warm/dry, abrasion(s), diaphoresis, ecchymosis, laceration(s) - NEUROLOGIC Neurologic: scallop cutter II-XII nml as tested, grossly normal, no motor/sensory deficits . negative: facial droop, focal weakness, motor weakness, sensory deficit - PSYCHIATRIC Psych/Mental Status: normal thought content, normal thought process, oriented x 3, anxious. negative: normal mood/affect Progress - PLAN OF CARE/RESULTS Progress/Plan/Lab Results: 01/20/17 23:40 Blood Culture - Final Blood NO GROWTH AFTER 5 DAYS 01/20/17 23:45 Blood Culture - Final Blood NO GROWTH AFTER 5 DAYS Orders Category Date Time Status Admit - [facility] - [facility] Routine AdmDCTranf 01/21/17 04:24 Ordered Activity - Up with Assistance ORDERED Care 01/21/17 04:24 Active Apply Mechanical Device [QM] ORDERED Care 01/21/17 04:24 Active FSBS/Accucheck Result AC + HS Care 01/21/17 04:24 Active Intake and Output-Strict Q 8-HR ASSESS Care 01/21/17 04:24 Active Nursing- Assist w/ IS as order ORDERED Care 01/21/17 04:24 Active Nursing- MD Consult Request ROUTINE Care 01/21/17 04:24 Active Vital Signs Order Q6-HR ASSESS Care 01/21/17 04:24 Active Physician/Provider Consults Routine Cons 01/21/17 07:00 Ordered EXTREM LOWER W/CONTRAST [CT] Stat Exams 01/20/17 23:28 Completed A1C HGB W EST AVG GLUCOSE [CHEM] Stat Lab 01/21/17 02:40 Completed BC [BLOOD CULTURE] [BLDCUL] Stat Lab 01/20/17 23:40 Completed CBC WITH DIFF [HEME] Stat Lab 01/21/17 02:40 Completed COMPREHENSIVE METABOLIC PANEL [CHEM] Stat Lab 01/21/17 02:40 Completed PROTIME WITH INR [COAG] Stat Lab 01/21/17 02:40 Completed PTT [COAG] Stat Lab 01/21/17 02:40 Completed WOUND CULTURE INC GRAM STAIN [RM] Routine Lab 01/21/17 02:55 Completed 0.9% Sodium Chloride Inj [Ns] 1,000 ml Med 01/21/17 04:24 Discontinued IV 100 mls/hr Acetaminophen [Ofirmev 1000 mg/Isotonic Soln] Med 01/21/17 04:24 Discontinued 1,000 mg in 100 ml IV Q6H PRN Clindamycin 600 mg/Ns Med 01/21/17 04:24 Discontinued 600 mg in 50 ml IV Q8H Dextrose 5%-0.9% NaCl Inj [D5 Ns] 1,000 ml Med 01/20/17 23:45 Discontinued IV 30 mls/hr Hydromorphone [Dilaudid] Med 01/20/17 23:30 Discontinued 1 mg IV NOW ONE Hydromorphone [Dilaudid] Med 01/21/17 04:24 Discontinued 1 mg IV Q3H PRN PRN Insulin Lispro [Humalog] Med 01/21/17 07:00 Discontinued See Protocol SUBQ 0700,1100,1600,2100 Lidocaine 1% [Xylocaine 1%] Med 01/21/17 00:51 Discontinued 20 ml INJ NOW ONE Metronidazole [Flagyl] 750 mg Med 01/21/17 01:29 Discontinued 0.9% Sodium Chloride Inj [Ns] 150 ml IV NOW Ondansetron [Zofran] Med 01/21/17 04:24 Discontinued 4 mg IV Q4H PRN PRN Pantoprazole [Protonix] Med 01/21/17 04:24 Discontinued 40 mg IV Q24H Pharmacy Order [Vancomycin IV Per Pharmacy] Med 01/21/17 04:24 Discontinued 1 each MISC DIRECTED Sodium Chloride 0.9% Med 01/21/17 04:24 Discontinued 10 ml INJ DIRECTED Vancomycin 1 gm/Ns Med 01/20/17 23:26 Discontinued 1 gm in 250 ml IV NOW Incentive Spirometer Routine Oth 01/21/17 04:24 Completed Oxygen Device Routine Oth 01/21/17 04:24 Completed EKG [EKG] Routine Ther 01/21/17 07:00 Completed Transfer/Admit Order [TRANSFER] Routine Transfer 01/21/17 02:43 Completed Result Diagrams: 01/23/17 05:59 01/23/17 05:59 - CT/MRI 1 CT Study: Lower Ext (LLE/hip) Impression: See EMR Report (L upper inner thigh cellulitis with subcutaneous gas , however, no abscess; L popliteal cyst) CT Results: See report - CONSULTS/PCP/HOSPITALIST Notification #1 *Consult/PCP/Hospitalist*: Dr. Collier (Surgeon) Time Discussed: 00:20 Consult Disposition: Will see in ED (Recommended to do as much drainage in ER and will follow up with pt in am.) #2 Consult: Dr. Salazar (Hospitalist) Time Discussed: 01:43 Consult Disposition: Admit Procedures - INCISION & DRAINAGE Site: L upper inner thigh Abscess Type: Cutaneous Prepped with: Hibiclens Anesthetic: 1%, Lidocaine/Xylocaine Volume of Anesthetic (ml's): 15 Blade Size: 11 Packing placed?: Yes (18 inches of Iodaform) Sterile Dressing Applied?: Yes Drainage: Small Amount (gas was also in wound) Departure - Departure Time of Disposition Decision: 01:27 DIAGNOSIS: Cellulitis and abscess of leg Disposition: ADMITTED INPATIENT 09 Certified Medical Emergency: Emergent Condition: Stable - Critical Care Note This patient required my direct personal management.: No This chart was documented by the indicated scribe, (Louis Garcia Scribe) and accurately reflects the services I performed and decisions made by me, Atul Marquez MD, as attested by the provider's signature.
--- NOTE | 2017-01-26 20:57 | DISCHARGE SUMMARY ---
ADMISSION DATE: 01/21/2017 DISCHARGE DATE: 01/24/2017 DISCHARGE SUMMARY ADDENDUM: The patient's debridement was an excisional debridement and we debrided skin and subcutaneous tissue and fat. cc: Serafin Collier MD
== END 2017-01-24 13:36 | disposition home or self-care (01) ==
LOC: ED 19:26 → 4N 01-21 04:08 → SUATTDRO 01-21 04:08
PROVIDERS: ATTEND Internal Medicine